=== PATIENT | female | born 1985 | race Hispanic/Latino ===

== ENCOUNTER 2019-11-06 10:08 | Outpatient (RCR) | payer BC, OTHER, SELFPAY | END 2020-02-04 23:59 | disposition home or self-care (01) | LOC: ANHDMC 10:08 | PROVIDERS: PCP Registered Nurse; Visit Provider Family Medicine | DX: E11.65 Type 2 diabetes mellitus with hyperglycemia (principal); Z71.89 Other specified counseling | CPT/HCPCS: G0108 ==

== ENCOUNTER 2023-09-19 15:47 | Outpatient (CLI) | payer BC, SELFPAY ==
[2023-09-19 16:30] LABS: Alanine Aminotransferase 14 U/L (6-35); Albumin Level 3.9 g/dL (3.5-5.1); Alkaline Phosphatase 58 U/L (38-126); Anion Gap 5 mmol/L (8-16); Aspartate Amino Transferase 17 U/L (14-36); Bilirubin,Total 0.6 mg/dL (0.2-1.3); Blood Urea Nitrogen 18 mg/dL (7-17); Calcium 8.8 mg/dL (8.4-10.2); Carbon Dioxide 26 mmol/L (22-30); Chloride 106 mmol/L (98-107); Estimated Glomerular Filt Rate > 60; Glucose 98 mg/dL (65-110); Potassium 3.6 mmol/L (3.4-5.0); Sodium 137 mmol/L (137-145)
[2023-09-22 06:11] LABS: Progesterone 2.5 ng/mL (***)
== END 2023-09-19 15:48 | disposition home or self-care (01) ==
LOC: ANHLAB 15:50
PROVIDERS: Visit Provider Student in an Organized Health Care Education/Training Program
DX: O20.0 Threatened abortion (principal); R74.8 Abnormal levels of other serum enzymes; Z3A.00 Weeks of gestation of pregnancy not specified
CPT/HCPCS: 36415; 80053; 84144; 84702; 86900; 86901

== ENCOUNTER 2023-09-21 07:58 | Outpatient (CLI) | payer BC, SELFPAY ==
[2023-09-21 09:09] LABS: Beta HCG Quantitative 200.62 mIU/ML
== END 2023-09-21 07:59 | disposition home or self-care (01) ==
LOC: ANHLAB 07:59
PROVIDERS: Visit Provider Student in an Organized Health Care Education/Training Program
DX: O20.0 Threatened abortion (principal); Z3A.00 Weeks of gestation of pregnancy not specified
CPT/HCPCS: 36415; 84702

== ENCOUNTER 2023-09-24 07:32 | Outpatient (CLI) | payer BC, SELFPAY | END 2023-09-24 07:33 | disposition home or self-care (01) | PROVIDERS: Visit Provider Student in an Organized Health Care Education/Training Program | DX: O20.0 Threatened abortion (principal); Z3A.00 Weeks of gestation of pregnancy not specified | CPT/HCPCS: 36415; 84702 ==

== ENCOUNTER 2023-09-28 08:17 | Outpatient (CLI) | payer BC, SELFPAY ==
--- NOTE | ~2023-09-28 | US_ITS ---
EXAMINATION: US OB <=14 wk fetus w TV DATE: 09/28/2023 08:47 INDICATION: Threatened , first trimester TECHNIQUE: Real-time pelvic transabdominal and transvaginal ultrasound was performed. COMPARISON: None. FINDINGS: The uterus measures 8.4 x 5.9 x 4.3 cm. The endometrial complex measures 9 mm in thickness. No intrauterine gestational sac is identified. The right ovary measures 4.7 x 4.0 x 3.6 cm and conta ins a 3.8 cm cyst. The left ovary measures 3.3 x 2.0 x 1.4 cm. There is normal vascular flow in the o varies. There is trace, likely physiologic free fluid in the pelvis. IMPRESSION: 1. of unknown location. Although no intrauterine gestational sac is seen, this may be due t o early gestation. If the patient is clinically stable, recommend followup with serial beta-hCG and u ltrasound. Reviewed, dictated and finalized at location [facility]. STMENT MANAGER IMPRESSION: 1. of unknown location. Although no intrauterine gestational sac is s een, this may be due to early gestation. If the patient is clinically stable, r ecommend followup with serial beta-hCG and ultrasound.
== END 2023-09-28 08:18 ==
PROVIDERS: PCP Obstetrics & Gynecology; Visit Provider Student in an Organized Health Care Education/Training Program
DX: O20.0 Threatened abortion (principal); Z3A.00 Weeks of gestation of pregnancy not specified
CPT/HCPCS: 76801; 76817

== ENCOUNTER 2023-09-28 11:30 | Outpatient (CLI) | payer BC, SELFPAY | END 2023-09-28 11:31 | disposition home or self-care (01) | LOC: ANHLAB 11:32 | PROVIDERS: PCP Nurse Practitioner Family; Visit Provider Obstetrics & Gynecology | DX: N92.6 Irregular menstruation, unspecified (principal) | CPT/HCPCS: 36415; 84702 ==

== ENCOUNTER 2023-10-01 07:26 | Outpatient (CLI) | payer BC, SELFPAY | END 2023-10-01 07:27 | disposition home or self-care (01) | LOC: ANHLAB 07:27 | PROVIDERS: PCP Nurse Practitioner Family; Visit Provider Obstetrics & Gynecology | DX: N92.6 Irregular menstruation, unspecified (principal) | CPT/HCPCS: 36415; 84702 ==

== ENCOUNTER 2023-10-15 10:01 | Outpatient (CLI) | payer BC, SELFPAY | END 2023-10-15 10:02 | disposition home or self-care (01) | LOC: ANHLAB 10:03 | PROVIDERS: PCP Nurse Practitioner Family; Visit Provider Student in an Organized Health Care Education/Training Program | DX: O20.0 Threatened abortion (principal); Z3A.00 Weeks of gestation of pregnancy not specified | CPT/HCPCS: 36415; 84702 ==

== ENCOUNTER 2023-10-15 10:57 | Outpatient (CLI) | payer BC, SELFPAY ==
--- NOTE | ~2023-10-15 | US_ITS ---
Pelvic ultrasound. Clinical History: First trimester , threatened Technique: Realtime transabdominal and transvaginal scanning of the pelvis was performed. Color flow Doppler and Doppler spectral analysis were performed. Findings: The uterus is anteverted.. The endometrial stripe has a thickness of 13 mm. No intrauterin e gestational sac is identified. The right ovary measures 3.9 x 2.5 x 1.8 cm. Right ovarian cyst measures 2.8 cm in diameter. The left ovary measures 1.9 x 1.8 x 1.6 cm. No significant left ovarian or adnexal mass is seen. There is no evidence of free fluid in the cul de sac. Impression: Positive test without intrauterine gestation. Differential diagnosis includes early normal , spontaneous , or nonvisualized ectopic patency. Correlate clinically. Continued fo llow-up with serial beta hCG advised. Repeat/follow-up ultrasound could be considered as indicated. Reviewed, dictated and finalized at [facility]. K CLERK Impression: Positive test without intrauterine gestation. Differential diagnosis includes early normal , spontaneous , or nonvisualized ectopic patency. Correlate clinically. Continued follow-up with serial beta hCG advise d. Repeat/follow-up ultrasound could be considered as indicated.
== END 2023-10-15 10:58 ==
PROVIDERS: PCP Obstetrics & Gynecology; Visit Provider Student in an Organized Health Care Education/Training Program
DX: O20.0 Threatened abortion (principal); Z3A.00 Weeks of gestation of pregnancy not specified
CPT/HCPCS: 76801; 76817

== ENCOUNTER 2023-11-01 14:59 | Outpatient (CLI) | payer BC, SELFPAY | END 2023-11-01 15:00 | disposition home or self-care (01) | LOC: ANHLAB 15:01 | PROVIDERS: PCP Obstetrics & Gynecology; Visit Provider Obstetrics & Gynecology | DX: O00.90 Unspecified ectopic pregnancy without intrauterine pregnancy (principal); Z3A.00 Weeks of gestation of pregnancy not specified | CPT/HCPCS: 36415; 84702 ==